=== PATIENT | female | born 1940 | race Caucasian/White ===

== ENCOUNTER 2023-01-21 12:21 | Emergency (ER) | payer MEDICARE, BC ==
[2023-01-21] MEDS ORDERED: Dexamethasone 4 MG/ML SDV IM ONE (13:50)
== END 2023-01-21 14:20 | disposition home or self-care (01) ==
LOC: DL.ED 12:21
DX: M25.511 Pain in right shoulder (principal); Z88.5 Allergy status to narcotic agent
CPT/HCPCS: 73030; 96372; 99283; J1100; 99282

== ENCOUNTER 2024-11-27 13:49 | Emergency (ER) | payer MEDICARE, BC ==
[2024-11-27 14:41] LABS: BASOPHILS PERCENT AUTO 0.2 % (0.0-1.0); EOSINOPHILS PERCENT AUTO 2.6 % (1.0-3.0); HEMOGLOBIN 11.2 g/dL (12.0-16.0); LYMPHOCYTES PERCENT AUTO 29.3 % (20.5-50.1); MEAN CORPUSCULAR HEMOGLOBIN 28.4 pg (27.0-34.0); MEAN CORPUSCULAR VOLUME 88.8 fL (80-100); MONOCYTES PERCENT AUTO 9.6 % (2-8); NEUTROPHILS PERCENT AUTO 58.3 % (42.2-75.2); PLATELET COUNT,PLT 113 10^3/uL (150-450); RED BLOOD CELL COUNT 3.94 10^6/uL (4.2-5.4); WHITE BLOOD CELL COUNT,WBC 4.2 10^3/uL (5.0-10.0)
[2024-11-27 15:05] LABS: ANION GAP 13.6 mEq/L (7-13); CREATININE 0.75 mg/dL (0.55-1.02); EST CRCL DRUG DOSING (CG) 40.11 mL/min; MAGNESIUM 1.4 mg/dL (1.8-2.4); PHOSPHORUS 3.7 mg/dL (2.6-4.7); POTASSIUM,K 3.6 mmol/L (3.5-5.1); TSH ULTRASENSITIVE 2.22 uIU/mL (0.36-3.74)
== END 2024-11-27 15:31 | disposition home or self-care (01) ==
LOC: DL.ED 13:49
DX: R00.0 Tachycardia, unspecified (principal); E83.42 Hypomagnesemia; I10 Essential (primary) hypertension; Z88.5 Allergy status to narcotic agent
CPT/HCPCS: 36415; 80048; 83735; 84100; 84443; 85025; 93010; 99284; 99285